=== PATIENT | male | born 1960 | race Asian ===

== ENCOUNTER 2018-05-08 11:17 | Emergency (ER) | payer OTHER ==
[~2018-05-08] VITALS: Ht 167.6 cm; Wt 72.6 kg
[2018-05-08 11:19] VITALS: Ht 167.6 cm; Wt 72.6 kg
[2018-05-08 13:07] LABS: BASOPHIL % 0.5 % (0-2); PLATELET COUNT 272 x10^3mcL (130-400); RED CELL DISTRIBUTION WIDTH 12.7 % (11.5-14.5)
[2018-05-08 13:21] LABS: CALCIUM 9.1 mg/dL (8.5-10.1); CARBON DIOXIDE 25.9 mmol/L (21-32); CHLORIDE SERUM 106 mmol/L (98-107); GFR1 > 60 mL/min; GLUCOSE SERUM 127 mg/dL (74-106); POTASSIUM SERUM 4.3 mmol/L (3.5-5.1); SODIUM SERUM 141 mmol/L (136-145)
[2018-05-08 13:25] LABS: ALBUMIN 4.3 g/dL (3.4-5.0); ALKALINE PHOSPHATASE 63 U/L (46-116); ALT/SGPT 43 U/L (16-63); AST/SGOT 23 U/L (15-37); BILIRUBIN TOTAL 0.63 mg/dL (0.20-1.00); TOTAL PROTEIN, SERUM 8.1 g/dL (6.4-8.2)
[2018-05-08 14:51] VITALS: BP 120/81
== END 2018-05-08 15:08 | disposition short-term general hospital (02) ==
LOC: ED 11:17
PROVIDERS: Specialist
DX: M54.5 Low back pain (principal); M62.81 Muscle weakness (generalized)
CPT/HCPCS: J1885; J2405; J2800; J2930; J3010; J3490; J7030